=== PATIENT | female | born 1950 | race Caucasian/White ===

== ENCOUNTER 2018-09-06 07:41 | Inpatient (IN) | payer MEDICARE, OTHER ==
[~2018-09-06 07:41] MED LIST: Acetaminophen 325 MG Tab PO SCH; Cyclobenzaprine 10 MG Tab PO PRN; Lactated Ringers 1,000 ML IV SCH; Lidocaine 1%/Sod Bicarbonate in NS 8.4% 1 ML Syringe IDERM PRN; Pregabalin 25 MG Cap PO SCH; Sodium Chloride 0.9% 10 ML Syringe FLUSH PRN; oxyCODONE ER 10 MG TAB.ER PO SCH
[2018-09-06] MEDS ORDERED: Propofol 200 MG/20 ML SDV ONE (07:59)
[2018-09-06] MEDS ORDERED: fentaNYL 100 MCG/2 ML SDV ONE ×2 (07:59→08:59)
[2018-09-06] MEDS ORDERED: Midazolam 1 MG/ML 2 ML SDV ONE (07:59)
[2018-09-06] MEDS ORDERED: Scopolamine 1.5 MG Transdermal Patch TRDERM ONE (08:34)
[2018-09-06] MEDS ORDERED: Ropivacaine 0.5% 5 MG/ML 30 ML SDV ONE (08:34)
[2018-09-06] MEDS ORDERED: EPINEPHrine 1 MG/ML SDV ONE (08:34)
[2018-09-06] MEDS ORDERED: Lidocaine 1% PF 2 ML SDV ONE (08:36)
--- NOTE | 2018-09-06 08:43 | PCM.PREANE ---
Preanesthetic Assessment - Anesthesia/Transfusion/Family Hx Anesthesia History: Prior Anesthesia Without Reaction Other Type of Anesthesia Reaction Comment: claustrophobic Transfusion History: No Prior Transfusion(s) Intubation History: Unknown - Review of Systems General: No Symptoms, Other (chronic pain, fibromylagia, anemia) Pulmonary: No Symptoms Cardiovascular: Other (HTN,) Gastrointestinal: Other (GERD with no symptoms, controlled on meds) Neurological: Other Other: Reports: Depression, Anxiety - Physical Assessment NPO Status Date: 09/05/18 NPO Status Time: 23:00 Pulse: 71 O2 Sat by Pulse Oximetry: 100 Respiratory Rate: 16 Blood Pressure: 139/74 Vital Signs: Last Vital Signs Temp 36.2 C 09/06/18 08:10 Pulse 71 09/06/18 08:10 Resp 16 09/06/18 08:10 BP 139/74 09/06/18 08:10 Pulse Ox 100 09/06/18 08:10 Weight: 74.843 kg ASA Class: 2 Mental Status: Alert & Oriented x3 Airway Class: Mallampati = 2 Dentition: Reports: Edentulous Thyro-Mental Finger Breadths: 3 Mouth Opening Finger Breadths: 3 ROM/Head Extension: Full Lungs: Clear to Auscultation, Normal Respiratory Effort Cardiovascular: Regular Rate, Regular Rhythm - Lab Values: Laboratory Last Values MRSA (PCR) Negative 08/26/18 09:30 - Allergies Allergies/Adverse Reactions: Allergies Allergy/AdvReac Type Severity Reaction Status Date / Time codeine Allergy Itching Verified 09/03/18 13:46 duloxetine [From Cymbalta] Allergy Cannot Verified 09/03/18 13:46 Remember hydrocodone Allergy Cannot Verified 09/03/18 13:46 Remember Iodinated Contrast- Oral and Allergy Anaphylactic Verified 09/03/18 13:46 IV Dye Shock Sulfa (Sulfonamide Allergy Anaphylactic Verified 09/03/18 13:46 Antibiotics) Shock acetaminophen AdvReac Anxiety Verified 09/03/18 13:46 [From Tylenol Cold Multi-Symptom] dextromethorphan AdvReac Anxiety Verified 09/03/18 13:46 [From Tylenol Cold Multi-Symptom] guaifenesin AdvReac Anxiety Verified 09/03/18 13:46 [From Tylenol Cold Multi-Symptom] phenylephrine AdvReac Anxiety Verified 09/03/18 13:46 [From Tylenol Cold Multi-Symptom] pseudoephedrine AdvReac Anxiety Verified 09/03/18 13:46 [From Tylenol Cold Multi-Symptom] - Blood Blood Available: No Product(s) Available: None - Anesthesia Plan Pre-Op Medication Ordered: None - Acknowledgements Anesthesia Type Planned: General Anesthesia Pt an Appropriate Candidate for the Planned Anesthesia: Yes Alternatives and Risks of Anesthesia Discussed w Pt/Guardian: Yes Pt/Guardian Understands and Agrees with Anesthesia Plan: Yes PreAnesthesia Questionnaire HEENT History: Reports: Impaired Vision, Otitis Media, Sinusitis, Other (See Below) Other HEENT History: glasses, dentures Cardiovascular History: Reports: High Cholesterol, Hypertension Respiratory History: Reports: None Gastrointestinal History: Reports: GERD, Other (See Below) Other Gastrointestinal History: dehydration Genitourinary History: Reports: UTI, Recurrent Other Genitourinary History: polydypsia, bladder pain 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: Musculoskeletal History: Reports: Arthritis, Back Pain, Chronic, Fibromyalgia, Osteoarthritis, Osteoporosis, Other (See Below) Other Musculoskeletal History: right foot hammertoe, left rotator cuff tendinopathy Neurological History: Reports: Vertigo Psychiatric History: Reports: Anxiety, Depression, Other (See Below) Other Psychiatric History: insomnia Endocrine/Metabolic History: Reports: Vitamin D Deficiency Hematologic History: Reports: Anemia, Other (See Below) Other Hematologic History: hypovolemia Immunologic History: Reports: None Oncologic (Cancer) History: Reports: None Dermatologic History: Reports: None - Infectious Disease History Infectious Disease History: Reports: Chicken Pox - Past Surgical History Head Surgeries/Procedures: Reports: None HEENT Surgical History: Reports: Cataract Surgery Cardiovascular Surgical History: Reports: None Respiratory Surgical History: Reports: None GI Surgical History: Reports: Appendectomy, Cholecystectomy, Colonoscopy, EGD Female Surgical History: Reports: Hysterectomy Male Surgical History: Reports: None Endocrine Surgical History: Reports: None Neurological Surgical History: Reports: Other (See Below) Other Neurological Surgeries/Procedures: fusion of L3L4L5 Musculoskeletal Surgical History: Reports: Knee Replacement, Other (See Below) Other Musculoskeletal Surgeries/Procedures:: bilateral total knee replacements, thumb fusion with artificial joint Oncologic Surgical History: Reports: None Dermatological Surgical History: Reports: None - SUBSTANCE USE Smoking Status *Q: Never Smoker Second Hand Smoke Exposure: No Recreational Drug Use History: No - HOME MEDS Home Medications: Home Meds Acetaminophen [Tylenol Extra Strength] 500 mg PO Q6H PRN 01/23/18 [History] Ca/D3/Mag#11/Zinc/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 Operator/Nate/Bor [Caltrate 600+D Plus Tablet] 1 tab PO BID [History] Celecoxib 200 mg PO BID PRN 01/23/18 [History] Gabapentin [Neurontin] 300 mg PO BID 01/23/18 [History] Multivitamin [Multivitamins] 1 cap PO DAILY 01/23/18 [History] Omeprazole 40 mg PO DAILY 01/23/18 [History] Ondansetron HCl [Zofran] 4 mg PO Q4H PRN 01/23/18 [History] Phenazopyridine HCl [Azo Standard] 97.5 mg PO ASDIRECTED PRN 01/23/18 [History] Simvastatin 20 mg PO DAILY 01/23/18 [History] Telmisartan/Hydrochlorothiazid [Micardis Hct 40-12.5 mg Tablet] 1 tab PO DAILY 01/23/18 [History] Venlafaxine [Effexor XR] 150 mg PO DAILY 01/23/18 [History] tiZANidine HCl [Tizanidine HCl] 1 - 2 mg PO BEDTIME PRN 01/23/18 [History] DULoxetine [Cymbalta] 30 mg PO DAILY 09/03/18 [History] - CURRENT (IN HOUSE) MEDS Current Meds: Current Medications Acetaminophen (Tylenol) 975 mg PO ONETIME [facility] Stop: 09/06/18 12:00 Last Admin: 09/06/18 08:19 Dose: 975 mg Acetaminophen/Codeine Phosphate (Tylenol With Codeine No.3 300mg/30mg) 1 - 2 tab PO Q4H PRN PRN Reason: Pain Aspirin (Ecotrin) 325 mg PO DAILY [facility] Bisacodyl (Dulcolax) 5 mg PO DAILY PRN PRN Reason: Constipation Docusate Sodium (Colace) 100 mg PO BID [facility] Lactated Ringer's (Ringers, Lactated) 1,000 mls @ 125 mls/hr IV ASDIRECTED [facility] Stop: 09/06/18 23:00 Cefazolin Sodium/Dextrose 2 gm (/ Premix) 50 mls @ 100 mls/hr IV Q8H [facility] Stop: 09/07/18 10:29 Ketorolac Tromethamine (Toradol) 15 mg IVPUSH Q6H PRN PRN Reason: Pain Lidocaine/Sodium Bicarbonate (Buffered Lidocaine 1% In Ns 8.4%) 0.25 ml IDERM ONETIME PRN PRN Reason: Prior to IV Start Stop: 09/06/18 12:00 Magnesium Hydroxide (Milk Of Magnesia) 30 ml PO BID PRN PRN Reason: Constipation Morphine Sulfate (Morphine) 2 mg IVPUSH Q2H PRN PRN Reason: Breakthrough Pain Naloxone HCl (Narcan) 0.1 mg IVPUSH Q5M PRN PRN Reason: Oversedation Ondansetron HCl (Zofran) 4 mg IVPUSH Q6H PRN PRN Reason: Nausea/Vomiting Oxycodone HCl (Oxycontin) 10 mg PO ONETIME [facility] Stop: 09/06/18 12:00 Last Admin: 09/06/18 08:19 Dose: 10 mg Pregabalin (Lyrica) 50 mg PO ONETIME [facility] Stop: 09/06/18 12:00 Last Admin: 09/06/18 08:19 Dose: 50 mg Scopolamine (Transderm-Scop) 1.5 mg TRDERM ONETIME ONE Stop: 09/06/18 08:35 Senna (Senna) 8.6 mg PO BID PRN PRN Reason: Constipation Sodium Chloride (Saline Flush) 10 ml FLUSH ASDIRECTED PRN PRN Reason: Keep Vein Open Stop: 09/06/18 12:00 Tizanidine HCl (Zanaflex) 2 mg PO Q8H PRN PRN Reason: Spasms Discontinued Medications Cefazolin Sodium (Ancef) Confirm Administered Dose 2 gm .ROUTE .STK-MED ONE Stop: 09/06/18 08:00 Cyclobenzaprine HCl (Flexeril) 10 mg PO TID PRN PRN Reason: Spasms Fentanyl (Sublimaze) Confirm Administered Dose 100 mcg .ROUTE .STK-MED ONE Stop: 09/06/18 08:00 Midazolam HCl (Versed 1 Mg/Ml) Confirm Administered Dose 2 mg .ROUTE .STK-MED ONE Stop: 09/06/18 08:00 Propofol (Diprivan 20 Ml) Confirm Administered Dose 200 mg .ROUTE .STK-MED ONE Stop: 09/06/18 08:00
[2018-09-06] MEDS ORDERED: Bupivacaine 0.25% 30 ML SDV ONE (08:56)
[2018-09-06] MEDS ORDERED: Vancomycin 1 GM SDV ONE (08:56)
[2018-09-06] MEDS ORDERED: ceFAZolin 1 GM Vial ONE (08:56)
--- NOTE | 2018-09-06 08:58 | PCM.CONS ---
H&P History of Present Illness - General Date of Service: 09/06/18 Admit Problem/Dx: Admission Diagnosis/Problem Admission Diagnosis/Problem Pain in shoulder region Source of Information: Patient, Old Records, Provider, RN, RN Notes Reviewed History Limitations: Reports: No Limitations - History of Present Illness Initial Comments - Free Text/Narative: Wendy Hathaway is a 67 yo female patient of Dr. Maloney who is post-operative day 0 of left total shoulder replacement revision to reverse total shoulder replacement. Hospital medicine was consulted for post-operative medical care. At this time she is resting comfortably in bed. Pain is controlled. She denies any chest pain, shortness of breath, palpitations, nausea, or vomiting. She carries a history of: HTN, HLD, Decreased vitamin D, OA, Osteoporosis, Anxiety, Depression, Anemia, GERD. She was never a smoker. She is a full code. Her primary care provider is Dr. Haywood. Left Shoulder Pain Score (Numeric/FACES): 6 - Related Data Allergies/Adverse Reactions: Allergies Allergy/AdvReac Type Severity Reaction Status Date / Time hydrocodone Allergy Cannot Verified 09/06/18 13:38 Remember Iodinated Contrast- Oral and Allergy Anaphylactic Verified 09/06/18 13:38 IV Dye Shock Sulfa (Sulfonamide Allergy Anaphylactic Verified 09/06/18 13:38 Antibiotics) Shock acetaminophen AdvReac Anxiety Verified 09/06/18 13:38 [From Tylenol Cold Multi-Symptom] codeine AdvReac Itching Verified 09/06/18 13:39 dextromethorphan AdvReac Anxiety Verified 09/06/18 13:38 [From Tylenol Cold Multi-Symptom] guaifenesin AdvReac Anxiety Verified 09/06/18 13:38 [From Tylenol Cold Multi-Symptom] phenylephrine AdvReac Anxiety Verified 09/06/18 13:38 [From Tylenol Cold Multi-Symptom] pseudoephedrine AdvReac Anxiety Verified 09/06/18 13:38 [From Tylenol Cold Multi-Symptom] Home Medications: Home Meds Ca/D3/Mag#11/Zinc/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/Nate/Bor [Caltrate 600+D Plus Tablet] 1 tab PO BID [History] Gabapentin [Neurontin] 300 mg PO BID 01/23/18 [History] Multivitamin [Multivitamins] 1 cap PO DAILY 01/23/18 [History] Omeprazole 40 mg PO DAILY 01/23/18 [History] Ondansetron HCl [Zofran] 4 mg PO Q4H PRN 01/23/18 [History] Phenazopyridine HCl [Azo Standard] 97.5 mg PO ASDIRECTED PRN 01/23/18 [History] Simvastatin 20 mg PO DAILY 01/23/18 [History] Telmisartan/Hydrochlorothiazid [Micardis Hct 40-12.5 mg Tablet] 1 tab PO DAILY 01/23/18 [History] Venlafaxine [Effexor XR] 150 mg PO DAILY 01/23/18 [History] DULoxetine [Cymbalta] 30 mg PO DAILY 09/03/18 [History] Acetaminophen [Tylenol Extra Strength] 500 mg PO Q6H PRN #0 09/06/18 [Rx] Acetaminophen/Codeine [Tylenol with Codeine No.3 300MG/30MG] 1 - 2 tab PO Q6H PRN #60 tablet 09/06/18 [Rx] Aspirin [Ecotrin] 325 mg PO DAILY #40 tab.ec 09/06/18 [Rx] Bisacodyl [Dulcolax] 5 mg PO DAILY PRN tablet 09/06/18 [Rx] Cholecalciferol (Vitamin D3) [Vitamin D3] 5,000 unit PO DAILY 09/06/18 [History] Docusate Sodium [Colace] 100 mg PO BID cap 09/06/18 [Rx] Magnesium Hydroxide [Milk of Magnesia] 30 ml PO BID PRN cup 09/06/18 [Rx] Sennosides [Senna] 8.6 mg PO BID PRN tablet 09/06/18 [Rx] tiZANidine [Zanaflex] 2 mg PO Q8H PRN #20 tablet 09/06/18 [Rx] Past Medical History HEENT History: Reports: Impaired Vision, Otitis Media, Sinusitis, Other (See Below) Other HEENT History: glasses, dentures Cardiovascular History: Reports: High Cholesterol, Hypertension Respiratory History: Reports: None Gastrointestinal History: Reports: GERD, Other (See Below) Other Gastrointestinal History: dehydration Genitourinary History: Reports: UTI, Recurrent Other Genitourinary History: polydypsia, bladder pain 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: Musculoskeletal History: Reports: Arthritis, Back Pain, Chronic, Fibromyalgia, Osteoarthritis, Osteoporosis, Other (See Below) Other Musculoskeletal History: right foot hammertoe, left rotator cuff tendinopathy Neurological History: Reports: Vertigo Psychiatric History: Reports: Anxiety, Depression, Other (See Below) Other Psychiatric History: insomnia Endocrine/Metabolic History: Reports: Vitamin D Deficiency Hematologic History: Reports: Anemia, Other (See Below) Other Hematologic History: hypovolemia Immunologic History: Reports: None Oncologic (Cancer) History: Reports: None Dermatologic History: Reports: None - Infectious Disease History Infectious Disease History: Reports: Chicken Pox - Past Surgical History Head Surgeries/Procedures: Reports: None HEENT Surgical History: Reports: Cataract Surgery Cardiovascular Surgical History: Reports: None Respiratory Surgical History: Reports: None GI Surgical History: Reports: Appendectomy, Cholecystectomy, Colonoscopy, EGD Female Surgical History: Reports: Hysterectomy Male Surgical History: Reports: None Endocrine Surgical History: Reports: None Neurological Surgical History: Reports: Other (See Below) Other Neurological Surgeries/Procedures: fusion of L3L4L5 Musculoskeletal Surgical History: Reports: Knee Replacement, Other (See Below) Other Musculoskeletal Surgeries/Procedures:: bilateral total knee replacements, thumb fusion with artificial joint Oncologic Surgical History: Reports: None Dermatological Surgical History: Reports: None Social & Family History - Family History Family Medical History: Noncontributory - Tobacco Use Smoking Status *Q: Never Smoker Second Hand Smoke Exposure: No - Caffeine Use Caffeine Use: Reports: Soda - Recreational Drug Use Recreational Drug Use: No H&P Review of Systems - Review of Systems: Review Of Systems: See Below General: Reports: No Symptoms. Denies: Fever, Chills, Malaise HEENT: Reports: No Symptoms. Denies: Headaches, Sore Throat Pulmonary: Reports: No Symptoms. Denies: Shortness of Breath, Wheezing, Cough, Sputum Cardiovascular: Reports: No Symptoms. Denies: Chest Pain, Palpitations, Dyspnea on Exertion, Edema, Lightheadedness Gastrointestinal: Reports: No Symptoms. Denies: Abdominal Pain, Constipation, Diarrhea, Nausea, Vomiting Genitourinary: Reports: No Symptoms Musculoskeletal: Reports: Shoulder Pain Skin: Reports: No Symptoms Psychiatric: Reports: No Symptoms. Denies: Confusion Neurological: Reports: No Symptoms Hematologic/Lymphatic: Reports: No Symptoms Immunologic: Reports: No Symptoms Exam - Exam Exam: See Below - Vital Signs Vital Signs: Last Vital Signs Temp 97.1 F 09/06/18 08:10 Pulse 71 09/06/18 08:52 Resp 16 09/06/18 08:52 BP 139/74 09/06/18 08:52 Pulse Ox 100 09/06/18 08:52 Weight: 165 lb - Exam Quality Assessment: DVT Prophylaxis General: Alert, Oriented, Cooperative. No: Mild Distress HEENT: Conjunctiva Clear, EACs Clear, EOMI, Hearing Intact, Mucosa Moist & [place] , Nares Patent, Normal Nasal Septum, Posterior Pharynx Clear, PERRLA Neck: Supple, Trachea Midline Lungs: Clear to Auscultation, Normal Respiratory Effort Cardiovascular: Regular Rate, Regular Rhythm GI/Abdominal Exam: Normal Bowel Sounds, Soft, Non-Tender, No Distention, No Abnormal Bruit (Female) Exam: Deferred Rectal (Female) Exam: Deferred Back Exam: Normal Inspection, Full Range of Motion Extremities: No Pedal Edema, Normal Capillary Refill, Arm Pain (left shoulder ) , Limited Range of Motion Peripheral Pulses: 3+: Radial (L), Radial (R), 4+: Dorsalis Pedis (L), Dorsalis Pedis (R) Skin: Warm, Dry, Intact Neurological: Cranial Nerves Intact (grossly ) Neuro Extensive - Mental Status: Alert, Oriented x3, Normal Mood/Affect, Normal Cognition, Memory Intact Consult PN Assessment/Plan POD#: 0 Procedures: Procedures COMPLETE CBC AUTOMATED (01/25/18) COMPREHEN METABOLIC PANEL (01/25/18) FLUOROSCOPY <1 HR PHYS/QHP (01/25/18) MR-STAPH DNA AMP PROBE (01/25/18) OT EVAL LOW COMPLEX 30 MIN (01/25/18) PT EVAL LOW COMPLEX 20 MIN (01/25/18) ROUTINE VENIPUNCTURE (01/25/18) SELF CARE MNGMENT TRAINING (01/25/18) THERAPEUTIC EXERCISES (01/25/18) X-RAY EXAM OF SHOULDER (01/25/18) (1) S/p reverse total shoulder arthroplasty SNOMED Code(s): 494708711, 915898063 Code(s): Z96.619 - PRESENCE OF UNSPECIFIED ARTIFICIAL SHOULDER JOINT Priority: High Current Visit: Yes Qualifiers: Laterality: left Qualified Code(s): Z96.612 - Presence of left artificial shoulder joint (2) Anemia SNOMED Code(s): 721983235 Code(s): D64.9 - ANEMIA, UNSPECIFIED Priority: Low Current Visit: No Qualifiers: Anemia type: unspecified type Qualified Code(s): D64.9 - Anemia, unspecified (3) Anxiety SNOMED Code(s): 43326638 Code(s): F41.9 - ANXIETY DISORDER, UNSPECIFIED Priority: Medium Current Visit: No (4) Fibromyalgia SNOMED Code(s): 212174977 Code(s): M79.7 - FIBROMYALGIA Priority: Medium Current Visit: No (5) HLD (hyperlipidemia) SNOMED Code(s): 12508661 Code(s): E78.5 - HYPERLIPIDEMIA, UNSPECIFIED Priority: Medium Current Visit: No Qualifiers: Hyperlipidemia type: unspecified Qualified Code(s): E78.5 - Hyperlipidemia , unspecified (6) HTN (hypertension) SNOMED Code(s): 06246076 Code(s): I10 - ESSENTIAL (PRIMARY) HYPERTENSION Priority: Medium Current Visit: No Qualifiers: Hypertension type: unspecified Qualified Code(s): I10 - Essential (primary ) hypertension (7) Insomnia SNOMED Code(s): 308785156 Code(s): G47.00 - INSOMNIA, UNSPECIFIED Priority: Medium Current Visit: No Qualifiers: Insomnia type: unspecified Qualified Code(s): G47.00 - Insomnia, unspecified (8) Osteoarthritis SNOMED Code(s): 069781596 Code(s): M19.90 - UNSPECIFIED OSTEOARTHRITIS, UNSPECIFIED SITE Priority: High Current Visit: No Qualifiers: Osteoarthritis location: shoulder Osteoarthritis type: primary Laterality : left Qualified Code(s): M19.012 - Primary osteoarthritis, left shoulder (9) Osteoporosis SNOMED Code(s): 01339368 Code(s): M81.0 - AGE-RELATED OSTEOPOROSIS W/O CURRENT PATHOLOGICAL FRACTURE Priority: Medium Current Visit: No Qualifiers: Osteoporosis type: unspecified Presence of current pathological fracture: unspecified Qualified Code(s): M81.0 - Age-related osteoporosis without current pathological fracture (10) Other specified depressive episodes SNOMED Code(s): 95197525 Code(s): F32.89 - OTHER SPECIFIED DEPRESSIVE EPISODES Priority: Low Current Visit: No (11) Sciatica SNOMED Code(s): 55554067 Code(s): M54.30 - SCIATICA, UNSPECIFIED SIDE Priority: Low Current Visit : No Qualifiers: Laterality: unspecified laterality Qualified Code(s): M54.30 - Sciatica, unspecified side Problem List Initiated/Reviewed/Updated: Yes Plan: I/P: Acute: S/P left total shoulder replacement revision to reverse total shoulder replacement - post-operative day 0 -DVT prophylaxis and pain management per primary care team -PT/OT -IS/RT -Monitor oxygen saturation -Titrate oxygen as needed -Vital signs stable -Monitor labs -Pre-operative Hgb was 13.3 -Pre-operative GFR was 81 Osteoarthritis of left shoulder -Pain management per primary care team Chronic: HTN HLD Decreased vitamin D OA Osteoporosis Anxiety Depression Anemia GERD Plan: CM for discharge planning GI prophylaxis Home medications as indicated Other orders as listed above Routine AM labs She is a full code. Her PCP is Dr. Haywood Thank you for allowing us to participate in the care of this patient!! Requesting Provider: Dr. Maloney Date Consult Requested: 09/06/18 Reason for Consult: Post-operative medical management Patient History Reviewed: Yes Admission H&P Reviewed: Yes Time Spent (in minutes): 40
--- NOTE | 2018-09-06 09:22 | PCM.SN ---
- Free Text/Narrative Note: Left Interscalene nerve block note Date: 09/06/2018 Start: 0846 Time Out: 0851 Stop: 08 Procedure: Left interscalene block under US guidance for postoperative pain control Patient chart reviewed, risk/benefits discussed with patient, consent obtained. Patient positioned supine, monitors/alarms on, oxygen placed via nasal cannula at 2 LPM. Left shoulder prepped with chlorahexadine. Sterile drapes placed with aseptic technique. Under US guidance, left subclavian artery visualized along with the brachial plexus. Plexus followed cephalad up to C6 cricoid level, and area localized with 2mls of 1% lidocaine. 22gauge 2 inch stimiplex needle inserted under US and guided to brachial plexus C5-C6 trunks with 0.44mV with stimulation of biceps noted. Stimulation abolished at 0.2mVs. 1ml of Normal Saline injected with loss of stimulation. Incremental injection of 5mls with negative aspiration prior to each injection of 0.5% ropivacaine with 1:200,000 epinephrine. Total volume=30mls. Refer to nurses notes for vital signs. Bo Jansen CRNA
[2018-09-06] MEDS ORDERED: Rocuronium 50 MG/5 ML Vial ONE (09:50)
[2018-09-06] MEDS ORDERED: Naloxone 0.4 MG/ML SDV IVPUSH PRN (10:00)
[2018-09-06] MEDS ORDERED: Morphine 2 MG/ML Syringe IVPUSH PRN (10:00)
[2018-09-06] MEDS ORDERED: Ondansetron 4 MG/2 ML SDV IVPUSH PRN ×2 (10:00→10:24)
[2018-09-06] MEDS ORDERED: tiZANidine 4 MG Tab PO PRN (10:00)
[2018-09-06] MEDS ORDERED: Sennosides 8.6 MG Tab PO PRN (10:00)
[2018-09-06] MEDS ORDERED: Magnesium Hydroxide 400 MG/5 ML Susp 30 ML Cup PO PRN (10:00)
[2018-09-06] MEDS ORDERED: Phenylephrine/Normal Saline 100 MCG/ML 10 ML Syringe ONE (10:12)
[2018-09-06] MEDS: ceFAZolin 1 GM Vial ONE ×2 (10:18→11:07)
[2018-09-06] MEDS ORDERED: fentaNYL 100 MCG/2 ML SDV IVPUSH PRN (10:24)
[2018-09-06] MEDS ORDERED: diphenhydrAMINE 50 MG/ML SDV IVPUSH PRN (10:24)
--- NOTE | 2018-09-06 11:49 | PCM.POSTAN ---
POST ANESTHESIA ASSESSMENT - MENTAL STATUS Mental Status: Alert, Oriented - VITAL SIGNS Pulse Rate: 93 SaO2: 99 Resp Rate: 14 Blood Pressure: 137/68 Temperature: 35.9 C - RESPIRATORY Respiratory Status: Respiratory Rate WNL, Airway Patent, O2 Saturation Stable, Supplemental Oxygen - CARDIOVASCULAR CV Status: Pulse Rate WNL, Blood Pressure Stable - GASTROINTESTINAL GI Status: No Symptoms - PAIN Pain Score: 0 - POST OP HYDRATION Hydration Status: Adequate & Stable
--- NOTE | 2018-09-06 11:58 | CR ---
Left shoulder: Four fluoroscopic spot views were obtained of the left shoulder. Study obtained utilizing C-arm device. Left shoulder prosthesis is noted. Components are aligned. Underlying bony structures are intact. Fluoroscopy time given as 4.6 seconds. Impression: 1. Procedural study showing placement of left shoulder prosthesis. Diagnostic code #2
[2018-09-06] MEDS ORDERED: Bisacodyl 5 MG Tab PO PRN (12:00)
--- NOTE | 2018-09-06 12:35 | CR ---
Left shoulder: Single AP view of left shoulder was obtained. Comparison: Prior operative study performed earlier on same day (10:58 AM). Left shoulder prosthesis is seen. Components are grossly aligned as seen on this exam. Underlying bony structures are grossly intact. Impression: 1. Left shoulder prosthesis. AP left shoulder study is otherwise unremarkable. Diagnostic code #2
[2018-09-06] MEDS: Ketorolac 15 MG/ML SDV IVPUSH PRN (13:12)
[2018-09-06] MEDS ORDERED: PHENAZOPYRIDINE HCL 97.5 MG PO PRN (13:52)
[2018-09-06] MEDS: Acetaminophen/Codeine 300-30 MG Tab PO PRN ×2 (15:23→20:52)
[2018-09-06] MEDS: ceFAZolin 2 GM in Premix Bag 1 BAG IV SCH (18:49)
[2018-09-06] MEDS: Docusate Sodium 100 MG Cap PO SCH (20:51)
[2018-09-06] MEDS: Gabapentin 300 MG Cap PO SCH (20:52)
[2018-09-07] MEDS: Ketorolac 15 MG/ML SDV IVPUSH PRN (02:18)
[2018-09-07] MEDS: ceFAZolin 2 GM in Premix Bag 1 BAG IV SCH ×2 (02:18→10:10)
--- NOTE | 2018-09-07 06:38 | PCM.CONSN ---
- General Info Date of Service: 09/07/18 Admission Dx/Problem (Free Text): Admission Diagnosis/Problem Admission Diagnosis/Problem Pain in shoulder region Functional Status: Reports: Pain Controlled, Tolerating Diet, Ambulating, Urinating, Incentive Spirometry. Denies: New Symptoms - Review of Systems General: Reports: No Symptoms. Denies: Fever, Malaise, Chills HEENT: Reports: No Symptoms. Denies: Headaches, Sore Throat Pulmonary: Reports: No Symptoms. Denies: Shortness of Breath, Pleuritic Chest Pain, Cough, Sputum, Wheezing Cardiovascular: Reports: No Symptoms. Denies: Chest Pain, Palpitations, Dyspnea on Exertion, Edema Gastrointestinal: Reports: No Symptoms. Denies: Abdominal Pain, Constipation, Diarrhea, Nausea, Vomiting Genitourinary: Reports: No Symptoms. Denies: Pain Musculoskeletal: Reports: Shoulder Pain Skin: Reports: No Symptoms. Denies: Cyanosis Neurological: Reports: No Symptoms. Denies: Confusion, Difficulty Walking, Gait Disturbance Psychiatric: Reports: No Symptoms - Patient Data Vitals - Most Recent: Last Vital Signs Temp 98.1 F 09/07/18 05:00 Pulse 82 09/07/18 05:00 Resp 14 09/07/18 05:00 BP 100/47 L 09/07/18 05:00 Pulse Ox 91 L 09/07/18 05:00 Weight - Most Recent: 168 lb 6.4 oz I&O - Last 24 Hours: Intake & Output 09/06/18 09/06/18 09/07/18 14:59 22:59 06:59 Intake Total 100 840 850 Output Total 300 1000 Balance 100 540 -150 Lab Results Last 24 Hours: Laboratory Results - last 24 hr 09/07/18 Range/Units 05:45 WBC 4.57 (3.98-10.04) K/mm3 RBC 3.26 L (3.98-5.22) M/mm3 Hgb 11.2 (11.2-15.7) gm/L Hct 32.8 L (34.1-44.9) % MCV 100.6 H (79.4-94.8) fl MCH 34.4 H (25.6-32.2) pg MCHC 34.1 (32.2-35.5) g/dl RDW Std Deviation 48.3 H (36.4-46.3) fL Plt Count 209 (182-369) K/mm3 MPV 8.8 L (9.4-12.3) fl Med Orders - Current: Current Medications Acetaminophen/Codeine Phosphate (Tylenol With Codeine No.3 300mg/30mg) 1 - 2 tab PO Q4H PRN PRN Reason: Pain Last Admin: 09/06/18 20:52 Dose: 2 tab Aspirin (Ecotrin) 325 mg PO DAILY [facility] Bisacodyl (Dulcolax) 5 mg PO DAILY PRN PRN Reason: Constipation Cholecalciferol (Vitamin D3) 5,000 unit PO DAILY [facility] Docusate Sodium (Colace) 100 mg PO BID [facility] Last Admin: 09/06/18 20:51 Dose: 100 mg Duloxetine HCl (Cymbalta) 30 mg PO DAILY [facility] Gabapentin (Neurontin) 300 mg PO BID [facility] Last Admin: 09/06/18 20:52 Dose: 300 mg Hydrochlorothiazide (Hydrochlorothiazide) 12.5 mg PO DAILY [facility] Cefazolin Sodium/Dextrose 2 gm (/ Premix) 50 mls @ 100 mls/hr IV Q8H [facility] Stop: 09/07/18 10:29 Last Admin: 09/07/18 02:18 Dose: 100 mls/hr Ketorolac Tromethamine (Toradol) 15 mg IVPUSH Q6H PRN PRN Reason: Pain Last Admin: 09/07/18 02:18 Dose: 15 mg Losartan Potassium (Cozaar) 50 mg PO DAILY [facility] Magnesium Hydroxide (Milk Of Magnesia) 30 ml PO BID PRN PRN Reason: Constipation Morphine Sulfate (Morphine) 2 mg IVPUSH Q2H PRN PRN Reason: Breakthrough Pain Multivitamins (Thera) 1 each PO DAILY [facility] Naloxone HCl (Narcan) 0.1 mg IVPUSH Q5M PRN PRN Reason: Oversedation Ondansetron HCl (Zofran) 4 mg IVPUSH Q6H PRN PRN Reason: Nausea/Vomiting Pantoprazole Sodium (Protonix) 40 mg PO DAILY [facility] Senna (Senna) 8.6 mg PO BID PRN PRN Reason: Constipation Simvastatin (Zocor) 20 mg PO DAILY [facility] Tizanidine HCl (Zanaflex) 2 mg PO Q8H PRN PRN Reason: Spasms Venlafaxine HCl (Effexor Xr) 150 mg PO DAILY [facility] Discontinued Medications Acetaminophen (Tylenol) 975 mg PO ONETIME [facility] Stop: 09/06/18 12:00 Last Admin: 09/06/18 08:19 Dose: 975 mg Bupivacaine HCl (Marcaine 0.25%) Confirm Administered Dose 30 ml .ROUTE .STK- MED ONE Stop: 09/06/18 08:57 Cefazolin Sodium (Ancef) Confirm Administered Dose 2 gm .ROUTE .STK-MED ONE Stop: 09/06/18 08:00 Last Admin: 09/06/18 11:07 Dose: 2 gm Cefazolin Sodium (Ancef) Confirm Administered Dose 2 gm .ROUTE .STK-MED ONE Stop: 09/06/18 08:57 Cyclobenzaprine HCl (Flexeril) 10 mg PO TID PRN PRN Reason: Spasms Diphenhydramine HCl (Benadryl) 25 mg IVPUSH Q6H PRN PRN Reason: itching Stop: 09/06/18 14:00 Epinephrine HCl (Adrenalin) Confirm Administered Dose 1 mg .ROUTE .STK-MED ONE Stop: 09/06/18 08:35 Fentanyl (Sublimaze) Confirm Administered Dose 100 mcg .ROUTE .STK-MED ONE Stop: 09/06/18 08:00 Fentanyl (Sublimaze) Confirm Administered Dose 100 mcg .ROUTE .STK-MED ONE Stop: 09/06/18 09:00 Fentanyl (Sublimaze) 50 mcg IVPUSH Q5M PRN PRN Reason: pain Stop: 09/06/18 14:00 Lactated Ringer's (Ringers, Lactated) 1,000 mls @ 125 mls/hr IV ASDIRECTED [facility] Stop: 09/06/18 23:00 Last Admin: 09/06/18 08:45 Dose: 125 mls/hr Lidocaine HCl (Xylocaine-Mpf 1%) Confirm Administered Dose 4 ml .ROUTE .STK-MED ONE Stop: 09/06/18 08:37 Lidocaine/Sodium Bicarbonate (Buffered Lidocaine 1% In Ns 8.4%) 0.25 ml IDERM ONETIME PRN PRN Reason: Prior to IV Start Stop: 09/06/18 12:00 Last Admin: 09/06/18 08:45 Dose: 0.25 ml Midazolam HCl (Versed 1 Mg/Ml) Confirm Administered Dose 2 mg .ROUTE .STK-MED ONE Stop: 09/06/18 08:00 Non-Formulary Medication (Multivitamin [Multivitamins]) 1 cap PO DAILY [facility] Non-Formulary Medication (Phenazopyridine Hcl [Azo Standard]) 97.5 mg PO ASDIRECTED PRN PRN Reason: as directed Ondansetron HCl (Zofran) 4 mg IVPUSH ONETIME PRN PRN Reason: Nausea/Vomiting Stop: 09/06/18 14:00 Oxycodone HCl (Oxycontin) 10 mg PO ONETIME [facility] Stop: 09/06/18 12:00 Last Admin: 09/06/18 08:19 Dose: 10 mg Phenylephrine HCl (Phenylephrine In Ns 100 Mcg/Ml) Confirm Administered Dose 1 mg .ROUTE .STK-MED ONE Stop: 09/06/18 10:13 Pregabalin (Lyrica) 50 mg PO ONETIME [facility] Stop: 09/06/18 12:00 Last Admin: 09/06/18 08:19 Dose: 50 mg Propofol (Diprivan 20 Ml) Confirm Administered Dose 200 mg .ROUTE .STK-MED ONE Stop: 09/06/18 08:00 Rocuronium [place] (Zemuron) Confirm Administered Dose 50 mg .ROUTE .STK-MED ONE Stop: 09/06/18 09:51 Ropivacaine (Naropin 0.5%) Confirm Administered Dose 30 ml .ROUTE .STK-MED ONE Stop: 09/06/18 08:35 Scopolamine (Transderm-Scop) 1.5 mg TRDERM ONETIME [facility] Stop: 09/06/18 08:35 Last Admin: 09/06/18 09:13 Dose: 1.5 mg Sodium Chloride (Saline Flush) 10 ml FLUSH ASDIRECTED PRN PRN Reason: Keep Vein Open Stop: 09/06/18 12:00 Tranexamic Acid (Cyklokapron) Confirm Administered Dose 1,000 mg .ROUTE .STK- MED ONE Stop: 09/06/18 08:57 Last Admin: 09/06/18 11:12 Dose: 1,000 mg Vancomycin HCl (Vancomycin) Confirm Administered Dose 1 gm .ROUTE .STK-MED ONE Stop: 09/06/18 08:57 Last Admin: 09/06/18 10:19 Dose: 1 gm - Exam Quality Assessment: DVT Prophylaxis. No: Supplemental Oxygen, Urine Catheter General: Alert, Oriented, Cooperative HEENT: Pupils Equal, Pupils Reactive, EOMI, Mucous Membr. Moist/[place] Neck: Supple, Trachea Midline Lungs: Clear to Auscultation, Normal Respiratory Effort Cardiovascular: Regular Rate, Regular Rhythm GI/Abdominal Exam: Normal Bowel Sounds, Soft, Non-Tender, No Distention, No Abnormal Bruit (Female) Exam: Deferred Back Exam: Normal Inspection, Full Range of Motion Extremities: Non-Tender, No Pedal Edema, Normal Capillary Refill, Arm Pain, Limited Range of Motion, Other (Bandage in place on left arm. Cooling pack in place. ) Peripheral Pulses: 3+: Radial (L), Radial (R), Dorsalis Pedis (L), Dorsalis Pedis (R) Skin: Warm, Dry, Intact Wound/Incisions: Dressing Dry and Intact, No Drainage Neurological: No New Focal Deficit Psy/Mental Status: Alert, Normal Affect, Normal Mood Consult PN Assessment/Plan POD#: 1 Procedures: Procedures COMPLETE CBC AUTOMATED (01/25/18) COMPREHEN METABOLIC PANEL (01/25/18) FLUOROSCOPY <1 HR PHYS/QHP (01/25/18) MR-STAPH DNA AMP PROBE (01/25/18) OT EVAL LOW COMPLEX 30 MIN (01/25/18) PT EVAL LOW COMPLEX 20 MIN (01/25/18) ROUTINE VENIPUNCTURE (01/25/18) SELF CARE MNGMENT TRAINING (01/25/18) THERAPEUTIC EXERCISES (01/25/18) X-RAY EXAM OF SHOULDER (01/25/18) (1) S/p reverse total shoulder arthroplasty SNOMED Code(s): 682491636, 081635870 Code(s): Z96.619 - PRESENCE OF UNSPECIFIED ARTIFICIAL SHOULDER JOINT Priority: High Current Visit: Yes Qualifiers: Laterality: left Qualified Code(s): Z96.612 - Presence of left artificial shoulder joint (2) Anemia SNOMED Code(s): 765966909 Code(s): D64.9 - ANEMIA, UNSPECIFIED Priority: Low Current Visit: No Qualifiers: Anemia type: unspecified type Qualified Code(s): D64.9 - Anemia, unspecified (3) Anxiety SNOMED Code(s): 65546236 Code(s): F41.9 - ANXIETY DISORDER, UNSPECIFIED Priority: Medium Current Visit: No (4) Fibromyalgia SNOMED Code(s): 542739474 Code(s): M79.7 - FIBROMYALGIA Priority: Medium Current Visit: No (5) HLD (hyperlipidemia) SNOMED Code(s): 45416648 Code(s): E78.5 - HYPERLIPIDEMIA, UNSPECIFIED Priority: Medium Current Visit: No Qualifiers: Hyperlipidemia type: unspecified Qualified Code(s): E78.5 - Hyperlipidemia , unspecified (6) HTN (hypertension) SNOMED Code(s): 70535212 Code(s): I10 - ESSENTIAL (PRIMARY) HYPERTENSION Priority: Medium Current Visit: No Qualifiers: Hypertension type: unspecified Qualified Code(s): I10 - Essential (primary ) hypertension (7) Insomnia SNOMED Code(s): 905127146 Code(s): G47.00 - INSOMNIA, UNSPECIFIED Priority: Medium Current Visit: No Qualifiers: Insomnia type: unspecified Qualified Code(s): G47.00 - Insomnia, unspecified (8) Osteoarthritis SNOMED Code(s): 805000421 Code(s): M19.90 - UNSPECIFIED OSTEOARTHRITIS, UNSPECIFIED SITE Priority: High Current Visit: No Qualifiers: Osteoarthritis location: shoulder Osteoarthritis type: primary Laterality : left Qualified Code(s): M19.012 - Primary osteoarthritis, left shoulder (9) Osteoporosis SNOMED Code(s): 76244111 Code(s): M81.0 - AGE-RELATED OSTEOPOROSIS W/O CURRENT PATHOLOGICAL FRACTURE Priority: Medium Current Visit: No Qualifiers: Osteoporosis type: unspecified Presence of current pathological fracture: unspecified Qualified Code(s): M81.0 - Age-related osteoporosis without current pathological fracture (10) Other specified depressive episodes SNOMED Code(s): 54031452 Code(s): F32.89 - OTHER SPECIFIED DEPRESSIVE EPISODES Priority: Low Current Visit: No (11) Sciatica SNOMED Code(s): 73285080 Code(s): M54.30 - SCIATICA, UNSPECIFIED SIDE Priority: Low Current Visit : No Qualifiers: Laterality: unspecified laterality Qualified Code(s): M54.30 - Sciatica, unspecified side Problem List Initiated/Reviewed/Updated: Yes Plan: I/P: Acute: S/P left total shoulder replacement revision to reverse total shoulder replacement - post-operative day 1 -DVT prophylaxis and pain management per primary care team -PT/OT -IS/RT -Monitor oxygen saturation -Titrate oxygen as needed -Vital signs stable -Monitor labs -Pre-operative Hgb was 13.3; Now 11.2 -Pre-operative GFR was 81; Now >60 Osteoarthritis of left shoulder -Pain management per primary care team Chronic: HTN HLD Decreased vitamin D OA Osteoporosis Anxiety Depression Anemia GERD Plan: CM for discharge planning GI prophylaxis Home medications as indicated Other orders as listed above Routine AM labs She is a full code. Her PCP is Dr. Haywood From a hospitalist standpoint Wendy is doing well. She has been up ambulating and working with therapies. She is off oxygen and has urinated. Labs and vital signs remain stable. Pain is controlled. No nursing or patient concerns. She will be cleared for discharge pending primary team and PT/OT agreement. Thank you for allowing us to participate in the care of this patient!!
--- NOTE | 2018-09-07 07:57 | PCM.SURGPN ---
- General Info Date of Service: 09/07/18 POD#: 1 Functional Status: Reports: Pain Controlled, Tolerating Diet, Ambulating, Urinating, Incentive Spirometry - Patient Data Vitals - Most Recent: Last Vital Signs Temp 98.1 F 09/07/18 05:00 Pulse 82 09/07/18 05:00 Resp 14 09/07/18 05:00 BP 100/47 L 09/07/18 05:00 Pulse Ox 92 L 09/07/18 06:46 Weight - Most Recent: 168 lb 6.4 oz I&O - Last 24 Hours: Intake & Output 09/06/18 09/07/18 09/07/18 22:59 06:59 14:59 Intake Total 840 850 Output Total 300 1000 Balance 540 -150 Lab Results Last 24 Hrs: Laboratory Results - last 24 hr 09/07/18 09/07/18 Range/Units 05:45 05:45 WBC 4.57 (3.98-10.04) K/mm3 RBC 3.26 L (3.98-5.22) M/mm3 Hgb 11.2 (11.2-15.7) gm/L Hct 32.8 L (34.1-44.9) % MCV 100.6 H (79.4-94.8) fl MCH 34.4 H (25.6-32.2) pg MCHC 34.1 (32.2-35.5) g/dl RDW Std Deviation 48.3 H (36.4-46.3) fL Plt Count 209 (182-369) K/mm3 MPV 8.8 L (9.4-12.3) fl Sodium 139 (136-145) mEq/L Potassium 3.7 (3.5-5.1) mEq/L Chloride 103 (98-107) mEq/L Carbon Dioxide 27 (21-32) mEq/L Anion Gap 12.7 (5-15) BUN 8 (7-18) mg/dL Creatinine 0.7 (0.55-1.02) mg/dL Est Cr Clr Drug Dosing 58.04 mL/min Estimated GFR (MDRD) > 60 (>60) mL/min BUN/Creatinine Ratio 11.4 L (14-18) Glucose 102 (80-115) mg/dL Calcium 8.2 L (8.5-10.1) mg/dL Total Bilirubin 0.6 (0.2-1.0) mg/dL AST 19 (15-37) U/L ALT 32 (14-59) U/L Alkaline Phosphatase 39 L (46-116) U/L Total Protein 5.6 L (6.4-8.2) g/dl Albumin 3.1 L (3.4-5.0) g/dl Globulin 2.5 gm/dL Albumin/Globulin Ratio 1.2 (1-2) Med Orders - Current: Current Medications Acetaminophen/Codeine Phosphate (Tylenol With Codeine No.3 300mg/30mg) 1 - 2 tab PO Q4H PRN PRN Reason: Pain Last Admin: 09/06/18 20:52 Dose: 2 tab Aspirin (Ecotrin) 325 mg PO DAILY [facility] Bisacodyl (Dulcolax) 5 mg PO DAILY PRN PRN Reason: Constipation Cholecalciferol (Vitamin D3) 5,000 unit PO DAILY [facility] Docusate Sodium (Colace) 100 mg PO BID [facility] Last Admin: 09/06/18 20:51 Dose: 100 mg Duloxetine HCl (Cymbalta) 30 mg PO DAILY [facility] Gabapentin (Neurontin) 300 mg PO BID [facility] Last Admin: 09/06/18 20:52 Dose: 300 mg Hydrochlorothiazide (Hydrochlorothiazide) 12.5 mg PO DAILY [facility] Cefazolin Sodium/Dextrose 2 gm (/ Premix) 50 mls @ 100 mls/hr IV Q8H [facility] Stop: 09/07/18 10:29 Last Admin: 09/07/18 02:18 Dose: 100 mls/hr Ketorolac Tromethamine (Toradol) 15 mg IVPUSH Q6H PRN PRN Reason: Pain Last Admin: 09/07/18 02:18 Dose: 15 mg Losartan Potassium (Cozaar) 50 mg PO DAILY [facility] Magnesium Hydroxide (Milk Of Magnesia) 30 ml PO BID PRN PRN Reason: Constipation Morphine Sulfate (Morphine) 2 mg IVPUSH Q2H PRN PRN Reason: Breakthrough Pain Multivitamins (Thera) 1 each PO DAILY [facility] Naloxone HCl (Narcan) 0.1 mg IVPUSH Q5M PRN PRN Reason: Oversedation Ondansetron HCl (Zofran) 4 mg IVPUSH Q6H PRN PRN Reason: Nausea/Vomiting Pantoprazole Sodium (Protonix) 40 mg PO DAILY [facility] Senna (Senna) 8.6 mg PO BID PRN PRN Reason: Constipation Simvastatin (Zocor) 20 mg PO DAILY [facility] Tizanidine HCl (Zanaflex) 2 mg PO Q8H PRN PRN Reason: Spasms Venlafaxine HCl (Effexor Xr) 150 mg PO DAILY [facility] Discontinued Medications Acetaminophen (Tylenol) 975 mg PO ONETIME [facility] Stop: 09/06/18 12:00 Last Admin: 09/06/18 08:19 Dose: 975 mg Bupivacaine HCl (Marcaine 0.25%) Confirm Administered Dose 30 ml .ROUTE .STK- MED ONE Stop: 09/06/18 08:57 Cefazolin Sodium (Ancef) Confirm Administered Dose 2 gm .ROUTE .STK-MED ONE Stop: 09/06/18 08:00 Last Admin: 09/06/18 11:07 Dose: 2 gm Cefazolin Sodium (Ancef) Confirm Administered Dose 2 gm .ROUTE .STK-MED ONE Stop: 09/06/18 08:57 Cyclobenzaprine HCl (Flexeril) 10 mg PO TID PRN PRN Reason: Spasms Diphenhydramine HCl (Benadryl) 25 mg IVPUSH Q6H PRN PRN Reason: itching Stop: 09/06/18 14:00 Epinephrine HCl (Adrenalin) Confirm Administered Dose 1 mg .ROUTE .STK-MED ONE Stop: 09/06/18 08:35 Fentanyl (Sublimaze) Confirm Administered Dose 100 mcg .ROUTE .STK-MED ONE Stop: 09/06/18 08:00 Fentanyl (Sublimaze) Confirm Administered Dose 100 mcg .ROUTE .STK-MED ONE Stop: 09/06/18 09:00 Fentanyl (Sublimaze) 50 mcg IVPUSH Q5M PRN PRN Reason: pain Stop: 09/06/18 14:00 Lactated Ringer's (Ringers, Lactated) 1,000 mls @ 125 mls/hr IV ASDIRECTED [facility] Stop: 09/06/18 23:00 Last Admin: 09/06/18 08:45 Dose: 125 mls/hr Lidocaine HCl (Xylocaine-Mpf 1%) Confirm Administered Dose 4 ml .ROUTE .STK-MED ONE Stop: 09/06/18 08:37 Lidocaine/Sodium Bicarbonate (Buffered Lidocaine 1% In Ns 8.4%) 0.25 ml IDERM ONETIME PRN PRN Reason: Prior to IV Start Stop: 09/06/18 12:00 Last Admin: 09/06/18 08:45 Dose: 0.25 ml Midazolam HCl (Versed 1 Mg/Ml) Confirm Administered Dose 2 mg .ROUTE .STK-MED ONE Stop: 09/06/18 08:00 Non-Formulary Medication (Multivitamin [Multivitamins]) 1 cap PO DAILY [facility] Non-Formulary Medication (Phenazopyridine Hcl [Azo Standard]) 97.5 mg PO ASDIRECTED PRN PRN Reason: as directed Ondansetron HCl (Zofran) 4 mg IVPUSH ONETIME PRN PRN Reason: Nausea/Vomiting Stop: 09/06/18 14:00 Oxycodone HCl (Oxycontin) 10 mg PO ONETIME [facility] Stop: 09/06/18 12:00 Last Admin: 09/06/18 08:19 Dose: 10 mg Phenylephrine HCl (Phenylephrine In Ns 100 Mcg/Ml) Confirm Administered Dose 1 mg .ROUTE .STK-MED ONE Stop: 09/06/18 10:13 Pregabalin (Lyrica) 50 mg PO ONETIME [facility] Stop: 09/06/18 12:00 Last Admin: 09/06/18 08:19 Dose: 50 mg Propofol (Diprivan 20 Ml) Confirm Administered Dose 200 mg .ROUTE .STK-MED ONE Stop: 09/06/18 08:00 Rocuronium [place] (Zemuron) Confirm Administered Dose 50 mg .ROUTE .STK-MED ONE Stop: 09/06/18 09:51 Ropivacaine (Naropin 0.5%) Confirm Administered Dose 30 ml .ROUTE .STK-MED ONE Stop: 09/06/18 08:35 Scopolamine (Transderm-Scop) 1.5 mg TRDERM ONETIME [facility] Stop: 09/06/18 08:35 Last Admin: 09/06/18 09:13 Dose: 1.5 mg Sodium Chloride (Saline Flush) 10 ml FLUSH ASDIRECTED PRN PRN Reason: Keep Vein Open Stop: 09/06/18 12:00 Tranexamic Acid (Cyklokapron) Confirm Administered Dose 1,000 mg .ROUTE .STK- MED ONE Stop: 09/06/18 08:57 Last Admin: 09/06/18 11:12 Dose: 1,000 mg Vancomycin HCl (Vancomycin) Confirm Administered Dose 1 gm .ROUTE .STK-MED ONE Stop: 09/06/18 08:57 Last Admin: 09/06/18 10:19 Dose: 1 gm - Exam Wound/Incisions: Dressing Dry and Intact General: Alert, Cooperative, No Acute Distress Lungs: Normal Respiratory Effort Extremities: Other (NVS intact for LUE. Mod soft tissue swelling about surgical site.) - Problem List Review Problem List Initiated/Reviewed/Updated: Yes - My Orders Last 24 Hours: Active Orders 24 hr Category Date Time Status Communication Order [RC] ROUTINE Care 09/06/18 10:23 Active Cooling Warming Measures [RC] ASDIRECTED Care 09/06/18 10:24 Inactive Notify Provider [RC] ASDIRECTED Care 09/06/18 10:24 Active Pulse Oximetry [RC] ASDIRECTED Care 09/06/18 10:24 Active Ready for Discharge [RC] PER UNIT ROUTINE Care 09/07/18 07:54 Ordered Regular Diet [DIET] Diet 09/06/18 Lunch Active Acetaminophen/Codeine [Tylenol with Codeine No.3 300MG/ Med 09/06/18 14:00 Active 30MG] 1 - 2 tab PO Q4H PRN Aspirin [Ecotrin] Med 09/07/18 09:00 Active 325 mg PO DAILY Bisacodyl [Dulcolax] Med 09/06/18 12:00 Active 5 mg PO DAILY PRN Cholecalciferol (Vitamin D3) [Vitamin D3] Med 09/07/18 09:00 Active 5,000 unit PO DAILY DULoxetine [Cymbalta] Med 09/07/18 09:00 Active 30 mg PO DAILY Docusate Sodium [Colace] Med 09/06/18 21:00 Active 100 mg PO BID Gabapentin [Neurontin] Med 09/06/18 21:00 Active 300 mg PO BID Ketorolac [Toradol] Med 09/06/18 10:00 Active 15 mg IVPUSH Q6H PRN Losartan [Cozaar] Med 09/07/18 09:00 Hold 50 mg PO DAILY Magnesium Hydroxide [Milk of Magnesia] Med 09/06/18 10:00 Active 30 ml PO BID PRN Morphine Med 09/06/18 10:00 Active 2 mg IVPUSH Q2H PRN Multivitamins,Therapeutic [Thera] Med 09/07/18 09:00 Active 1 each PO DAILY Naloxone [Narcan] Med 09/06/18 10:00 Active 0.1 mg IVPUSH Q5M PRN Ondansetron [Zofran] Med 09/06/18 10:00 Active 4 mg IVPUSH Q6H PRN Pantoprazole [ProTONIX] Med 09/07/18 09:00 Active 40 mg PO DAILY Sennosides [Senna] Med 09/06/18 10:00 Active 8.6 mg PO BID PRN Simvastatin [Zocor] Med 09/07/18 09:00 Active 20 mg PO DAILY Venlafaxine [Effexor XR] Med 09/07/18 09:00 Active 150 mg PO DAILY ceFAZolin [Ancef] 2 gm Med 09/06/18 18:00 Active Premix Bag 1 bag IV Q8H hydroCHLOROthiazide Med 09/07/18 09:00 Active 12.5 mg PO DAILY tiZANidine [Zanaflex] Med 09/06/18 10:00 Active 2 mg PO Q8H PRN Medication Orders Acetaminophen/Codeine Phosphate (Tylenol With Codeine No.3 300mg/30mg) 1 - 2 tab PO Q4H PRN PRN Reason: Pain Last Admin: 09/06/18 20:52 Dose: 2 tab Admin: 09/06/18 15:23 Dose: 2 tab Aspirin (Ecotrin) 325 mg PO DAILY [facility] Bisacodyl (Dulcolax) 5 mg PO DAILY PRN PRN Reason: Constipation Cholecalciferol (Vitamin D3) 5,000 unit PO DAILY [facility] Docusate Sodium (Colace) 100 mg PO BID [facility] Last Admin: 09/06/18 20:51 Dose: 100 mg Duloxetine HCl (Cymbalta) 30 mg PO DAILY [facility] Gabapentin (Neurontin) 300 mg PO BID [facility] Last Admin: 09/06/18 20:52 Dose: 300 mg Hydrochlorothiazide (Hydrochlorothiazide) 12.5 mg PO DAILY [facility] Cefazolin Sodium/Dextrose 2 gm (/ Premix) 50 mls @ 100 mls/hr IV Q8H [facility] Stop: 09/07/18 10:29 Last Admin: 09/07/18 02:18 Dose: 100 mls/hr Infusion: 09/06/18 19:19 Dose: 100 mls/hr Admin: 09/06/18 18:49 Dose: 100 mls/hr Ketorolac Tromethamine (Toradol) 15 mg IVPUSH Q6H PRN PRN Reason: Pain Last Admin: 09/07/18 02:18 Dose: 15 mg Admin: 09/06/18 13:12 Dose: 15 mg Losartan Potassium (Cozaar) 50 mg PO DAILY [facility] Magnesium Hydroxide (Milk Of Magnesia) 30 ml PO BID PRN PRN Reason: Constipation Morphine Sulfate (Morphine) 2 mg IVPUSH Q2H PRN PRN Reason: Breakthrough Pain Multivitamins (Thera) 1 each PO DAILY [facility] Naloxone HCl (Narcan) 0.1 mg IVPUSH Q5M PRN PRN Reason: Oversedation Ondansetron HCl (Zofran) 4 mg IVPUSH Q6H PRN PRN Reason: Nausea/Vomiting Pantoprazole Sodium (Protonix) 40 mg PO DAILY [facility] Senna (Senna) 8.6 mg PO BID PRN PRN Reason: Constipation Simvastatin (Zocor) 20 mg PO DAILY [facility] Tizanidine HCl (Zanaflex) 2 mg PO Q8H PRN PRN Reason: Spasms Venlafaxine HCl (Effexor Xr) 150 mg PO DAILY [facility] - Assessment Assessment (Free Text/Narrative):: POD#1 - left TSA converted to reverse TSA - Plan Plan (Free Text/Narrative):: 1. Hgb 11.2. 2. 325mg ASA PO daily. 3. T#3 and tizanidine for pain management per the pt's request as the pt has done well with these medications previously. 4. Discharge to home today. 5. Outpatient therapy. The pt's case was discussed with Dr. Maloney.
--- NOTE | 2018-09-07 08:12 | PCM.DCSUM1 ---
Discharge Summary - Hospital Course Brief History: Wendy is a 67 yo female who had left TSA converted to reverse TSA with Dr. Maloney on 09-06-2018. The procedure was completed under general anesthesia with regional block. The pt tolerated the procedure well and was admitted to the Medical-Surgical Unit. Medical management was provided by the Hospitalist service. The pt's Hospital course was uneventful. The pt's Hgb on POD#1 was 11.2. On POD#1, 325mg ASA daily was initiated for VTE prophylaxis. SCDs and TEDs were also ordered. A Mepilex dressing was placed at the incision site at the time of surgery and remained clean and dry. The pt participated in P.T. and O.T. and progressed well. On POD#1, the pt was deemed appropriate to discharge to home. - Discharge Data Discharge Date: 09/07/18 Discharge Disposition: Home, Self-Care 01 Condition: Good - Patient Summary/Data Consults: Consultations 09/06/18 06:44 OT Evaluation and Treatment [CONS] Routine PT Evaluation and Treatment [CONS] Routine 09/06/18 06:46 Consult to Physician [CONS] Routine - Patient Instructions Diet: Usual Diet as Tolerated Activity: Apply Ice, As Tolerated, Elevate Extremity Activity, Other: No forceful use of the surgical limb. Driving: Do Not Drive Showering/Bathing: May Shower Wound/Incision Care: Keep Operative Site/Wound Site Clean and Dry, Do NOT Change Dressing Notify Provider of: Fever, Increased Pain, Swelling and Redness, Drainage, Nausea and/or Vomiting Other/Special Instructions: Please get up and moving around EVERY HOUR while awake. This helps to prevent blood clots. Have help wtih mobility as needed. Please take 325mg aspirin daily. The aspirin is being used for blood clot prevention and not for pain management, so please do not miss a dose of the medication. You could use a medication like Zantac or Pepcid and a medication like Prilosec or Nexium to protect your stomach while you are using the aspirin. At home, please complete the exercises that you learned during the Hospital stay. Schedule for physical or occupational therapy. Use the pain medication as needed. The medication may cause drowsiness and constipation. Contact your primary care provider for instructions if you are constipated. You may use a stool softener like docusate sodium or Colace 100mg twice daily and/or a laxative like Miralax daily for constipation. Increase your water and fiber intake while you are using the pain medication. Discontinue use of the pain medication as soon as able. Please do not use other medications that may cause drowsiness (other pain medications, anxiety pills, cold medications, sleeping pills, etc) while using the prescription pain medication. Do not use alcohol while using the pain medication. Wear the MEDARDO hose during the day and you may remove these at night. Elevate the limb to decrease swelling. Place ice to the area often. Place a towel between your skin and the blue pad. Use the incentive spirometer often. Take deep breaths throughout the day. Please keep the dressing in place until follow-up. Notify the Clinic if the dressing becomes saturated. Increase your protein intake while you are healing. If you have diabetes, please closely monitor your blood sugars and notify your primary care provider with abnormal values. Elevated blood sugars increases the risk of infection. Call the Clinic with questions or concerns - [phone]. - Discharge Plan *PRESCRIPTION DRUG MONITORING PROGRAM REVIEWED*: No *COPY OF PRESCRIPTION DRUG MONITORING REPORT IN PATIENT BOOM: No Prescriptions/Med Rec: Acetaminophen/Codeine [Tylenol with Codeine No.3 300MG/30MG] 1 - 2 tab PO Q6H PRN #60 tablet PRN Reason: Pain Aspirin [Ecotrin] 325 mg PO DAILY #40 tab.ec tiZANidine [Zanaflex] 2 mg PO Q8H PRN #20 tablet PRN Reason: Spasms Home Medications: Home Meds Ca/D3/Mag#11/Zinc/Maintainer Operator/Nate/Bor [Caltrate 600+D Plus Tablet] 1 tab PO BID [History] Gabapentin [Neurontin] 300 mg PO BID 01/23/18 [History] Multivitamin [Multivitamins] 1 cap PO DAILY 01/23/18 [History] Omeprazole 40 mg PO DAILY 01/23/18 [History] Ondansetron HCl [Zofran] 4 mg PO Q4H PRN 01/23/18 [History] Phenazopyridine HCl [Azo Standard] 97.5 mg PO ASDIRECTED PRN 01/23/18 [History] Simvastatin 20 mg PO DAILY 01/23/18 [History] Telmisartan/Hydrochlorothiazid [Micardis Hct 40-12.5 mg Tablet] 1 tab PO DAILY 01/23/18 [History] Venlafaxine [Effexor XR] 150 mg PO DAILY 01/23/18 [History] DULoxetine [Cymbalta] 30 mg PO DAILY 09/03/18 [History] Acetaminophen [Tylenol Extra Strength] 500 mg PO Q6H PRN #0 09/06/18 [Rx] Acetaminophen/Codeine [Tylenol with Codeine No.3 300MG/30MG] 1 - 2 tab PO Q6H PRN #60 tablet 09/06/18 [Rx] Aspirin [Ecotrin] 325 mg PO DAILY #40 tab.ec 09/06/18 [Rx] Bisacodyl [Dulcolax] 5 mg PO DAILY PRN tablet 09/06/18 [Rx] Cholecalciferol (Vitamin D3) [Vitamin D3] 5,000 unit PO DAILY 09/06/18 [History] Docusate Sodium [Colace] 100 mg PO BID cap 09/06/18 [Rx] Magnesium Hydroxide [Milk of Magnesia] 30 ml PO BID PRN cup 09/06/18 [Rx] Sennosides [Senna] 8.6 mg PO BID PRN tablet 09/06/18 [Rx] tiZANidine [Zanaflex] 2 mg PO Q8H PRN #20 tablet 09/06/18 [Rx] Referrals: Bonnie Damon, KANDACE [Physician Clean In Places Operator] - - Discharge Summary/Plan Comment DC Time >30 min.: No - Patient Data Vitals - Most Recent: Last Vital Signs Temp 98.1 F 09/07/18 05:00 Pulse 82 09/07/18 05:00 Resp 14 09/07/18 05:00 BP 100/47 L 09/07/18 05:00 Pulse Ox 92 L 09/07/18 06:46 Weight - Most Recent: 168 lb 6.4 oz I&O - Last 24 hours: Intake & Output 09/06/18 09/07/18 09/07/18 22:59 06:59 14:59 Intake Total 840 850 Output Total 300 1000 Balance 540 -150 Lab Results - Last 24 hrs: Laboratory Results - last 24 hr 09/07/18 09/07/18 Range/Units 05:45 05:45 WBC 4.57 (3.98-10.04) K/mm3 RBC 3.26 L (3.98-5.22) M/mm3 Hgb 11.2 (11.2-15.7) gm/L Hct 32.8 L (34.1-44.9) % MCV 100.6 H (79.4-94.8) fl MCH 34.4 H (25.6-32.2) pg MCHC 34.1 (32.2-35.5) g/dl RDW Std Deviation 48.3 H (36.4-46.3) fL Plt Count 209 (182-369) K/mm3 MPV 8.8 L (9.4-12.3) fl Sodium 139 (136-145) mEq/L Potassium 3.7 (3.5-5.1) mEq/L Chloride 103 (98-107) mEq/L Carbon Dioxide 27 (21-32) mEq/L Anion Gap 12.7 (5-15) BUN 8 (7-18) mg/dL Creatinine 0.7 (0.55-1.02) mg/dL Est Cr Clr Drug Dosing 58.04 mL/min Estimated GFR (MDRD) > 60 (>60) mL/min BUN/Creatinine Ratio 11.4 L (14-18) Glucose 102 (80-115) mg/dL Calcium 8.2 L (8.5-10.1) mg/dL Total Bilirubin 0.6 (0.2-1.0) mg/dL AST 19 (15-37) U/L ALT 32 (14-59) U/L Alkaline Phosphatase 39 L (46-116) U/L Total Protein 5.6 L (6.4-8.2) g/dl Albumin 3.1 L (3.4-5.0) g/dl Globulin 2.5 gm/dL Albumin/Globulin Ratio 1.2 (1-2) Med Orders - Current: Current Medications Acetaminophen/Codeine Phosphate (Tylenol With Codeine No.3 300mg/30mg) 1 - 2 tab PO Q4H PRN PRN Reason: Pain Last Admin: 09/06/18 20:52 Dose: 2 tab Aspirin (Ecotrin) 325 mg PO DAILY [facility] Bisacodyl (Dulcolax) 5 mg PO DAILY PRN PRN Reason: Constipation Cholecalciferol (Vitamin D3) 5,000 unit PO DAILY [facility] Docusate Sodium (Colace) 100 mg PO BID [facility] Last Admin: 09/06/18 20:51 Dose: 100 mg Duloxetine HCl (Cymbalta) 30 mg PO DAILY [facility] Gabapentin (Neurontin) 300 mg PO BID [facility] Last Admin: 09/06/18 20:52 Dose: 300 mg Hydrochlorothiazide (Hydrochlorothiazide) 12.5 mg PO DAILY [facility] Cefazolin Sodium/Dextrose 2 gm (/ Premix) 50 mls @ 100 mls/hr IV Q8H [facility] Stop: 09/07/18 10:29 Last Admin: 09/07/18 02:18 Dose: 100 mls/hr Ketorolac Tromethamine (Toradol) 15 mg IVPUSH Q6H PRN PRN Reason: Pain Last Admin: 09/07/18 02:18 Dose: 15 mg Losartan Potassium (Cozaar) 50 mg PO DAILY [facility] Magnesium Hydroxide (Milk Of Magnesia) 30 ml PO BID PRN PRN Reason: Constipation Morphine Sulfate (Morphine) 2 mg IVPUSH Q2H PRN PRN Reason: Breakthrough Pain Multivitamins (Thera) 1 each PO DAILY [facility] Naloxone HCl (Narcan) 0.1 mg IVPUSH Q5M PRN PRN Reason: Oversedation Ondansetron HCl (Zofran) 4 mg IVPUSH Q6H PRN PRN Reason: Nausea/Vomiting Pantoprazole Sodium (Protonix) 40 mg PO DAILY [facility] Senna (Senna) 8.6 mg PO BID PRN PRN Reason: Constipation Simvastatin (Zocor) 20 mg PO DAILY [facility] Tizanidine HCl (Zanaflex) 2 mg PO Q8H PRN PRN Reason: Spasms Venlafaxine HCl (Effexor Xr) 150 mg PO DAILY [facility] Discontinued Medications Acetaminophen (Tylenol) 975 mg PO ONETIME [facility] Stop: 09/06/18 12:00 Last Admin: 09/06/18 08:19 Dose: 975 mg Bupivacaine HCl (Marcaine 0.25%) Confirm Administered Dose 30 ml .ROUTE .STK- MED ONE Stop: 09/06/18 08:57 Cefazolin Sodium (Ancef) Confirm Administered Dose 2 gm .ROUTE .STK-MED ONE Stop: 09/06/18 08:00 Last Admin: 09/06/18 11:07 Dose: 2 gm Cefazolin Sodium (Ancef) Confirm Administered Dose 2 gm .ROUTE .STK-MED ONE Stop: 09/06/18 08:57 Cyclobenzaprine HCl (Flexeril) 10 mg PO TID PRN PRN Reason: Spasms Diphenhydramine HCl (Benadryl) 25 mg IVPUSH Q6H PRN PRN Reason: itching Stop: 09/06/18 14:00 Epinephrine HCl (Adrenalin) Confirm Administered Dose 1 mg .ROUTE .STK-MED ONE Stop: 09/06/18 08:35 Fentanyl (Sublimaze) Confirm Administered Dose 100 mcg .ROUTE .STK-MED ONE Stop: 09/06/18 08:00 Fentanyl (Sublimaze) Confirm Administered Dose 100 mcg .ROUTE .STK-MED ONE Stop: 09/06/18 09:00 Fentanyl (Sublimaze) 50 mcg IVPUSH Q5M PRN PRN Reason: pain Stop: 09/06/18 14:00 Lactated Ringer's (Ringers, Lactated) 1,000 mls @ 125 mls/hr IV ASDIRECTED [facility]IE[facility] Stop: 09/06/18 23:00 Last Admin: 09/06/18 08:45 Dose: 125 mls/hr Lidocaine HCl (Xylocaine-Mpf 1%) Confirm Administered Dose 4 ml .ROUTE .STK-MED ONE Stop: 09/06/18 08:37 Lidocaine/Sodium Bicarbonate (Buffered Lidocaine 1% In Ns 8.4%) 0.25 ml IDERM ONETIME PRN PRN Reason: Prior to IV Start Stop: 09/06/18 12:00 Last Admin: 09/06/18 08:45 Dose: 0.25 ml Midazolam HCl (Versed 1 Mg/Ml) Confirm Administered Dose 2 mg .ROUTE .STK-MED ONE Stop: 09/06/18 08:00 Non-Formulary Medication (Multivitamin [Multivitamins]) 1 cap PO DAILY [facility] Non-Formulary Medication (Phenazopyridine Hcl [Azo Standard]) 97.5 mg PO ASDIRECTED PRN PRN Reason: as directed Ondansetron HCl (Zofran) 4 mg IVPUSH ONETIME PRN PRN Reason: Nausea/Vomiting Stop: 09/06/18 14:00 Oxycodone HCl (Oxycontin) 10 mg PO ONETIME [facility] Stop: 09/06/18 12:00 Last Admin: 09/06/18 08:19 Dose: 10 mg Phenylephrine HCl (Phenylephrine In Ns 100 Mcg/Ml) Confirm Administered Dose 1 mg .ROUTE .STK-MED ONE Stop: 09/06/18 10:13 Pregabalin (Lyrica) 50 mg PO ONETIME [facility] Stop: 09/06/18 12:00 Last Admin: 09/06/18 08:19 Dose: 50 mg Propofol (Diprivan 20 Ml) Confirm Administered Dose 200 mg .ROUTE .STK-MED ONE Stop: 09/06/18 08:00 Rocuronium [place] (Zemuron) Confirm Administered Dose 50 mg .ROUTE .STK-MED ONE Stop: 09/06/18 09:51 Ropivacaine (Naropin 0.5%) Confirm Administered Dose 30 ml .ROUTE .STK-MED ONE Stop: 09/06/18 08:35 Scopolamine (Transderm-Scop) 1.5 mg TRDERM ONETIME ONE Stop: 09/06/18 08:35 Last Admin: 09/06/18 09:13 Dose: 1.5 mg Sodium Chloride (Saline Flush) 10 ml FLUSH ASDIRECTED PRN PRN Reason: Keep Vein Open Stop: 09/06/18 12:00 Tranexamic Acid (Cyklokapron) Confirm Administered Dose 1,000 mg .ROUTE .STK- MED ONE Stop: 09/06/18 08:57 Last Admin: 09/06/18 11:12 Dose: 1,000 mg Vancomycin HCl (Vancomycin) Confirm Administered Dose 1 gm .ROUTE .STK-MED ONE Stop: 09/06/18 08:57 Last Admin: 09/06/18 10:19 Dose: 1 gm
[2018-09-07] MEDS: Acetaminophen/Codeine 300-30 MG Tab PO PRN ×2 (08:27→12:33)
[2018-09-07] MEDS ORDERED: Multivitamins,Therapeutic Tab PO SCH (09:00)
[2018-09-07] MEDS ORDERED: DULoxetine 30 MG Cap PO SCH (09:00)
[2018-09-07] MEDS ORDERED: Venlafaxine 75 MG Cap.ER PO SCH (09:00)
[2018-09-07] MEDS ORDERED: Cholecalciferol (Vitamin D3) 5,000 UNIT Tab PO SCH (09:00)
[2018-09-07] MEDS ORDERED: Aspirin 325 MG Tab.EC PO SCH (09:00)
[2018-09-07] MEDS ORDERED: Hydrochlorothiazide 12.5 MG Cap PO SCH (09:00)
[2018-09-07] MEDS ORDERED: Simvastatin 20 MG Tab PO SCH (09:00)
[2018-09-07] MEDS ORDERED: Pantoprazole 40 MG Tab.CR PO SCH (09:00)
[2018-09-07] MEDS ORDERED: Non-Formulary Medication 1 Each (Multivitamin [Multivitamins] 1 CAP) PO SCH (09:00)
[2018-09-07] MEDS ORDERED: Losartan 25 MG Tab PO SCH (09:00)
[2018-09-07] MEDS: Gabapentin 300 MG Cap PO SCH (10:03)
[2018-09-07] MEDS: Docusate Sodium 100 MG Cap PO SCH (10:07)
--- NOTE | 2018-09-07 17:13 | PCM.OPNOTE ---
- General Post-Op/Procedure Note Date of Surgery/Procedure: 09/06/18 Operative Procedure(s): revision of left total shoulder arthroplasty to reverse total shoulder arthroplasty Pre Op Diagnosis: rotator cuff failure status post shoulder arhtroplasty Post-Op Diagnosis: Same Anesthesia Technique: General ET Tube, Regional Block Primary Surgeon: Darion Maloney Anesthesia Provider: Irene Lux Aluminum Boats Assembler: Bonnie Damon Aluminum Boats Assembler: Li Gutiérrez EBL in mLs: 200 Complications: None Condition: Good Free Text/Narrative:: Intake & Output 09/07/18 09/07/18 09/07/18 06:59 14:59 22:59 Intake Total 850 720 Output Total 1000 Balance -150 720
--- NOTE | 2018-09-07 17:48 | OR ---
DATE OF OPERATION: 09/06/2018 SURGEON: Darion Maloney MD OPERATION PERFORMED: Revision of left total shoulder arthroplasty to reverse total shoulder arthroplasty. PREOPERATIVE DIAGNOSIS: Rotator cuff failure, status post left total shoulder arthroplasty. POSTOPERATIVE DIAGNOSIS: Rotator cuff failure, status post left total shoulder arthroplasty. ANESTHESIA: General endotracheal intubation with regional interscalene block. ANESTHESIA PROVIDER: Irene Lux. ASSISTANTS: Bonnie Damon PA-C and Li Gutiérrez LPN. ESTIMATED BLOOD LOSS: 200 mL. COMPLICATIONS: None. CONDITION: Stable. IMPLANTS: 1. Arthrex size small glenoid baseplate. 2. Arthrex size 36 +4 Glenosphere. 3. Arthrex size 6 humeral stem. 4. Arthrex 135 degrees with 6 mm spacer and 3 mm polyethylene. DESCRIPTION OF PROCEDURE: The patient was identified in the preoperative holding area where proper site was marked and identified by the surgeon. The patient was taken back to the operating theater, where after adequate anesthesia, the patient's left upper extremity was sterilely prepped and draped in the usual sterile fashion. OR time-out was performed. The patient received 2 g IV Ancef. At this time, previous incision was utilized. This was taken down to the deltopectoral interval which was tagged from previous. The subdeltoid space was then found and utilized. The subscapularis tendon was noted to be completely torn off to the humerus. The patient was noted to have significant tearing of the supraspinatus and infraspinatus as well. At this time, the other components were well seated and well healed. At this time, the previous humeral head was impacted off and the stem then had a flexible osteotome used around it and then was impacted out of place. The patient's humerus was noted to have still good bone quality. At this time, attention was turned to the glenoid. Posterior and anterior retractors were then placed, and a saw was used to cut the polyethylene in half and then osteotomes and mallets were used to remove the remainder of the polyethylene. Guide pin was then placed in a center-center position for a small glenoid baseplate. The central reamer hole was then drilled making sure that all previous cement and polyethylene were out of it before this happened and then the peripheral small reamer was then utilized. At this time as a small glenoid baseplate was impacted in place, central compression screw was then placed and inferior and superior locking screws were placed and found to have good purchase on the locking screws. At this time, attention was turned back to the humerus. The humerus was then broached and roughly 30 degrees retroversion up to a size 6 which was found to be very stable. At this time, the central peg for reaming for the Glenosphere was then done at this time in the humerus and a 36 +4 Glenosphere was impacted and placed on the glenoid baseplate. Trial implants were then placed. It was found to just have small amount of looseness, but no signs of gross instability with a +6. At this time, +9 was trialed and found to have adequate congregation of tension on the deltoid as well as the conjoint tendon with no signs of instability. At this time, the size 6 humeral stem 135 degrees constructed on the back table with the 6 mm spacer and a 3 mm polyethylene which was impacted in place, and this was all impacted in the humerus. The humerus was then reduced and C-arm radiographs showed it to be well seated. There were no signs of fracture. At this time, 3 L pulse lavage irrigation with Ancef were irrigated through the shoulder. Vicryl was used subcutaneously after topical tranexamic acid and vancomycin powder were placed and Prineo was used for the skin. The patient was placed in a pillow sling and sent to PACU in stable condition. JHOANA /[id number]
== END 2018-09-07 12:42 | disposition home or self-care (01) | DRG 483 ==
LOC: JD.MS 07:41
PROVIDERS: ADMIT Orthopaedic Surgery; ATTEND Orthopaedic Surgery
PROC: 0RPK0JZ Removal of Synthetic Substitute from Left Shoulder Joint, Open Approach (ICD-10-PCS; principal; 2018-09-06)
PROC: 0RRK00Z Replacement of Left Shoulder Joint with Reverse Ball and Socket Synthetic Substitute, Open Approach (ICD-10-PCS; principal; 2018-09-06)
PROC: 3E0T3BZ Introduction of Anesthetic Agent into Peripheral Nerves and Plexi, Percutaneous Approach (ICD-10-PCS; 2018-09-06)
DX: T84.84XA Pain due to internal orthopedic prosthetic devices, implants and grafts, initial encounter (principal); Y83.8 Other surgical procedures as the cause of abnormal reaction of the patient, or of later complication, without mention of misadventure at the time of the procedure; E78.5 Hyperlipidemia, unspecified; I10 Essential (primary) hypertension; E55.9 Vitamin D deficiency, unspecified; G47.00 Insomnia, unspecified; M81.0 Age-related osteoporosis without current pathological fracture; G89.29 Other chronic pain; M54.40 Lumbago with sciatica, unspecified side; G89.18 Other acute postprocedural pain; M75.122 Complete rotator cuff tear or rupture of left shoulder, not specified as traumatic; F41.9 Anxiety disorder, unspecified; F32.9 Major depressive disorder, single episode, unspecified; M79.7 Fibromyalgia; D64.9 Anemia, unspecified; K21.9 Gastro-esophageal reflux disease without esophagitis; E66.3 Overweight; Z68.31 Body mass index [BMI] 31.0-31.9, adult; Z79.82 Long term (current) use of aspirin; Z79.899 Other long term (current) drug therapy; Z88.5 Allergy status to narcotic agent; Z88.2 Allergy status to sulfonamides; Z88.8 Allergy status to other drugs, medicaments and biological substances; Z91.041 Radiographic dye allergy status; H54.7 Unspecified visual loss; E78.00 Pure hypercholesterolemia, unspecified; Z87.440 Personal history of urinary (tract) infections; Z90.49 Acquired absence of other specified parts of digestive tract; Z98.1 Arthrodesis status; Z90.710 Acquired absence of both cervix and uterus; Z96.653 Presence of artificial knee joint, bilateral
CPT/HCPCS: 01638; 36415; 64415; 73020-26-LT; 73020-LT; 76000; 76000-26; 80053; 85027; 87641; 97110-GP; 97116-GP; 97161-GP; 97165-GO; 97535-GO; A9270-GY; C1713; C1776; J0171; J0690; J1885; J2001; J2250; J2370; J2704; J2795; J3010; J3370; J3490; J7120